=== PATIENT | male | born 1980 | race Two or more races ===

== ENCOUNTER 2016-07-03 15:22 | Emergency (ER) | payer SELFPAY ==
[~2016-07-03] VITALS: Ht 165.1 cm; Wt 73.9 kg
[2016-07-03] MEDS ORDERED: TETRACAINE HCL 0.5% OPTH(EYE) SOLN 4ML EACHEYE ONE (16:15)
[2016-07-03 16:37] VITALS: BP 116/77
[2016-07-03] MEDS ORDERED: prednisoLONE ACETATE 1% OPTH SUSP 5ML ONE (16:48)
[2016-07-03] MEDS ORDERED: NEOMYCIN-POLYMY-DEXAMETH 0.1% OPTH(EYE) OINT 3.5GM RIGHTEYE ONE (17:00)
[2016-07-03] MEDS ORDERED: NEOMYCIN-POLYM-GRAM OPTH(EYE) SOL 10ML ONE (17:03)
[2016-07-03] MEDS ORDERED: NEOMYCIN-POLYM-GRAM OPTH(EYE) SOL 10ML RIGHTEYE ONE (17:15)
== END 2016-07-03 17:19 | disposition home or self-care (01) ==
LOC: EDBD 15:32 → ER 15:32
DX: T15.01XA Foreign body in cornea, right eye, initial encounter (principal); W21.01XA Struck by football, initial encounter; Y93.89 Activity, other specified; Y99.8 Other external cause status; Y92.89 Other specified places as the place of occurrence of the external cause
CPT/HCPCS: 65220

== ENCOUNTER 2018-05-14 08:06 | Emergency (ER) | payer SELFPAY ==
[~2018-05-14] VITALS: Ht 162.6 cm; Wt 74.8 kg
[2018-05-14 08:20] VITALS: BP 118/87
[2018-05-14] MEDS ORDERED: diphenhdrAMINE HCL 25 MG CAP PO ONE (10:30)
[2018-05-14] MEDS ORDERED: methylPREDNISolone SOD SUCC 125 MG/2 ML VL IM ONE (10:30)
== END 2018-05-14 11:24 | disposition home or self-care (01) ==
LOC: ER 08:06
DX: T78.40XA Allergy, unspecified, initial encounter (principal)
CPT/HCPCS: 96372; 99283; J2930

== ENCOUNTER 2024-10-23 12:32 | Emergency (ER) | payer MEDICAID ==
[~2024-10-23] VITALS: Ht 167.6 cm; Wt 70.8 kg
[2024-10-23 12:45] VITALS: BP 124/79; RESP 18; TEMP 98.1; O2SAT 96
[2024-10-23 12:56] VITALS: PULSE 78
--- NOTE | 2024-10-23 13:03 | ECG ---
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
--- NOTE | 2024-10-23 13:53 | ED.PDOC ---
Back pain HPI HPI Comments 43-year-old male with a MHx presents with a chief complaint of atraumatic bilateral shoulder, epicondyle, wrist, hand pain. Symptoms started three weeks ago, unknown cause Seen to [facility] 1 week ago and was discharged same day with the baclofen, ibuprofen, acetaminophen, tramadol In his aggravated with laying in bed on the affected sides. Denies fevers chills nausea vomiting diarrhea Denies a family history of rheumatoid arthritis PCP: does not have one Chief Complaint: Body Pain Time Seen by MD: 13:07 Primary Care Provider: NONE Reviewed Notes: Nurses Notes, Medications, Allergies Allergies: Coded Allergies: NO KNOWN ALLERGIES (Unverified , 07/03/16) Information Source: Patient Mode of Arrival: Ambulatory Past Medical History PAST MEDICAL HISTORY: Denies Surgical History: Denies all surgeries All Other Systems: Reviewed and Negative (Per HPI) Physical Exam General Appearance: No Apparent Distress, Normal HEENT: Normal ENT Inspection, Pharynx Normal, TMs Normal Neck: Full Range of Motion, Non-Tender, Normal, Normal Inspection Respiratory: Chest Non-Tender, Lungs Clear, No Accessory Muscle Use, No Respiratory Distress, Normal Breath Sounds Cardiovascular: No Edema, No JVD, No Murmur, No Gallop, Normal Peripheral Pulses, Regular Rate/Rhythm Breast Exam: Deferred Gastrointestinal: No Organomegaly, Non Tender, No Pulsatile Mass, Normal Bowel Sounds, Soft Genitalia: Deferred Pelvic: Deferred Rectal: Deferred Extremities: No calf tenderness, Normal capillary refill, Normal inspection, Normal range of motion, Non-tender, No pedal edema Musculoskeletal : Apperance: Normal Neurologic: Alert, plate worker II-XII nml as Tested, No Motor Deficits, Normal Affect, Normal Mood, No Sensory Deficits Cerebellar Function: Normal Reflexes: Normal Skin: Dry, Normal Color, Warm Lymphatic: No Adenopathy Was a procedure done? Was a procedure done?: No Back Pain Differential Dx Differential Diagnosis: Musculoskeletal Pain, Other X-Ray, Labs, Meds, VS Vital Signs Date Time Temp Pulse Resp B/P (MAP) Pulse Ox O2 Delivery O2 Flow Rate FiO2 10/23/24 12:56 78 10/23/24 12:45 98.1 98 18 124/79 (94) 96 98.1 10/23/24 12:45 98 X-Ray, Labs, Meds, VS Comment Eloped Time of 1ST Reevaluation: 13:50 Reevaluation 1ST: Improved Patient Education/Counseling: Diagnosis, Treatment Family Education/Counseling: Diagnosis, Treatment SEPSIS Sepsis Screen Date sepsis recognized/suspect: Oct 23, 2024 Time Sepsis recognized/suspect: 1248 Recent Procedure: No On Antibiotic Therapy: No Respiratory Rate >20: No Heart Rate >90: Yes Temp<36 C (96.8 F) or >38.3 C: No SBP <90 or MAP <65 mmHG: No New Acute Mental Status Change: No Is the patient on CPAP, BIPAP,: No Vital Signs Date Time Temp Pulse Resp B/P (MAP) Pulse Ox O2 Delivery O2 Flow Rate FiO2 10/23/24 12:56 78 10/23/24 12:45 98.1 98 18 124/79 (94) 96 98.1 10/23/24 12:45 98 Departure 1 Departure Time of Disposition: 13:53 Impression: Primary Impression: Eloped from emergency department Disposition: 07 LEFT AWOL/ELOPED Condition: Stable Critical Care Note Critical Care Time?: No Stability Stability form required: No Heart Score Heart Score: Heart Score Response (Comments) Value History N/A 0 EKG N/A 0 Age N/A 0 Risk Factors N/A 0 Troponin N/A 0 Total 0 SANDY EASLEY FINISH [employer] Oct 23, 2024 13:53
== END 2024-10-23 16:34 | disposition left against medical advice (07) ==
LOC: ER 12:32
DX: M25.511 Pain in right shoulder (principal); M25.512 Pain in left shoulder
CPT/HCPCS: 93005